=== PATIENT | female | born 1960 | race Two or more races ===

== ENCOUNTER 2024-07-03 10:48 | Emergency (ER) | payer OTHER ==
[~2024-07-03] VITALS: Ht 152.4 cm; Wt 74.8 kg
[2024-07-03] MEDS ORDERED: LOSARTAN POTAS100 MG PO (11:11)
[2024-07-03] MEDS ORDERED: SYNTHROID75 MCG PO (11:11)
[2024-07-03] MEDS ORDERED: DEPAKOTE ER500 MG PO (11:12)
[2024-07-03] MEDS ORDERED: GRALISE600 MG PO (11:12)
[2024-07-03] MEDS ORDERED: METFORMIN HCL1000 M2 PO (11:12)
[2024-07-03] MEDS ORDERED: TRAMADOL HCL 50 MG TABLET PO STA (12:28)
== END 2024-07-03 13:39 | disposition home or self-care (01) ==
LOC: ER 10:49
DX: H57.12 Ocular pain, left eye (principal); I10 Essential (primary) hypertension; E11.9 Type 2 diabetes mellitus without complications; Z79.84 Long term (current) use of oral hypoglycemic drugs; Z88.6 Allergy status to analgesic agent; Z88.0 Allergy status to penicillin